=== PATIENT | female | born 1985 ===

== ENCOUNTER 2021-11-30 12:54 | Emergency (ER) | payer SELFPAY ==
[2021-11-30 13:49] VITALS: BP 144/90
[2021-11-30] MEDS ORDERED: SODIUM CHLORIDE 0.9% 500 ML 500 ML IV ONE (14:07)
[2021-11-30] MEDS ORDERED: ONDANSETRON 4 MG/2 ML INJ IV ONE (14:07)
--- NOTE | 2021-11-30 14:09 | Event Note ---
ED Screening Note Date of service: 11/30/21 Time: 14:08 ED Screening Note: 35-year-old female with a past medical history of RA and Crohn's disease presents to the emergency department for evaluation of 1 week history of lower abdominal pain, nausea, vomiting, and generalized swelling of joints. She denies fever, diarrhea, and dysuria. This initial assessment/diagnostic orders/clinical plan/treatment(s) is/are subject to change based on patients health status, clinical progression and re- assessment by fellow clinical providers in the ED. Further treatment and workup at subsequent clinical providers discretion. Patient/guardian urged not to elope from the ED as their condition may be serious if not clinically assessed and managed. Initial orders include:
[2021-11-30] MEDS ORDERED: HYDROmorphone 1 MG/1 ML INJ IV ONE ×2 (14:48→17:48)
--- NOTE | 2021-11-30 14:49 | Emergency Department Report ---
ED General Adult HPI - General Chief complaint: Abdominal Pain Stated complaint: BODYACHE WEAKNESS SWOLLEN Time Seen by Provider: 11/30/21 14:12 Source: patient, RN notes reviewed Mode of arrival: Ambulatory Limitations: No Limitations - History of Present Illness Initial comments: During the history and physical examination, I am chaperoned by dermatology teacher Isha Flynn The patient is a 35-year-old female, recently relocated here from [place]. Her past medical history includes rheumatoid arthritis, and Crohn's disease. She does not have a local primary care doctor, roll reclaimer, or GI specialist. Her home medications include hydroxychloroquine, sulfasalazine, prednisone, 10 mg daily, Flexeril, folic acid, Tylenol, Ventolin, iron sulfate, potassium chloride, and monoclonal antibody, cimzin She also reports that she is COVID-19 vaccinated. The patient presents to the ER with a complaint of diffuse arthralgias, myalgias, lower abdominal pressure, and cramping, without urinary symptoms, without cough, with a complaint of feeling like she needs to go to the bathroom. She has not been able to obtain follow-up with the aforementioned outpatient specialist. She reports that she has supplies of her aforementioned medications at home, secondary to receiving them while in [place]. Denies headache, neck pain, chest pain, vomiting, dysuria. -: Gradual, days(s) Location: abdomen, left, right, upper extremity, lower extremity Consistency: constant Improves with: rest Worsens with: movement - Related Data Previous Rx's Medication Instructions Recorded Last Taken Type Acetaminophen [Non-Aspirin Extra 500 mg PO Q6HR PRN #30 tablet 11/30/21 Unknown Rx Strength] Metoclopramide [Reglan] 10 mg PO QID PRN #30 tablet 11/30/21 Unknown Rx predniSONE 10 mg PO .TAPER #48 tab 11/30/21 Unknown Rx Allergies Allergy/AdvReac Type Severity Reaction Status Date / Time No Known Allergies Allergy Verified 11/30/21 13:45 ED Review of Systems ROS: Stated complaint: BODYACHE WEAKNESS SWOLLEN Other details as noted in HPI Constitutional: malaise, weakness. denies: fever Eyes: denies: eye discharge ENT: denies: epistaxis Respiratory: denies: cough Cardiovascular: denies: chest pain Gastrointestinal: abdominal pain. denies: vomiting, diarrhea Genitourinary: denies: dysuria Musculoskeletal: joint swelling, arthralgia, myalgia Neurological: weakness Hematological/Lymphatic: denies: easy bleeding ED Past Medical Hx - Medications Home Medications: Home Medications Medication Instructions Recorded Confirmed Last Taken Type Acetaminophen [Non-Aspirin Extra 500 mg PO Q6HR PRN #30 tablet 11/30/21 Unknown Rx Strength] Metoclopramide [Reglan] 10 mg PO QID PRN #30 tablet 11/30/21 Unknown Rx predniSONE 10 mg PO .TAPER #48 tab 11/30/21 Unknown Rx ED Physical Exam - General Limitations: No Limitations General appearance: alert, in no apparent distress - Head Head exam: Present: atraumatic, normocephalic - Eye Eye exam: Present: normal appearance, EOMI. Absent: nystagmus - ENT ENT exam: Present: normal exam, normal orophraynx, mucous membranes moist, normal external ear exam - Neck Neck exam: Present: normal inspection, full ROM. Absent: tenderness, meningismus - Respiratory Respiratory exam: Present: normal lung sounds bilaterally. Absent: respiratory distress, wheezes, rales, rhonchi, stridor, decreased breath sounds - Cardiovascular Cardiovascular Exam: Present: regular rate, normal rhythm, normal heart sounds. Absent: bradycardia, tachycardia, irregular rhythm, systolic murmur, diastolic murmur, rubs, gallop - GI/Abdominal GI/Abdominal exam: Present: soft, tenderness, other (There is lower abdominal tenderness). Absent: distended, guarding, rebound, rigid, pulsatile mass - Extremities Exam Extremities exam: Present: normal inspection (No redness, pus or streaking noted), full ROM, tenderness (Point tenderness to the bilateral hands. Point tenderness in the bilateral knees.), other (2+ pulses noted in the bilateral upper and lower extremities. There is no palpable cord. negative Homans sign. Muscular compartments are soft. The pelvis is stable.). Absent: pedal edema, calf tenderness - Back Exam Back exam: Present: normal inspection, paraspinal tenderness. Absent: tenderness, CVA tenderness (R), CVA tenderness (L), vertebral tenderness - Neurological Exam Neurological exam: Present: alert, oriented X3, normal gait, other (No facial droop. Tongue midline. Extraocular movements intact bilaterally. Facial sen sation intact to light touch in V1, V2, V3 distribution bilaterally. 5 and a 5 strength in 4 extremities. Sensation intact to light touch in 4 extremities.). Absent: motor sensory deficit - Psychiatric Psychiatric exam: Present: normal affect, normal mood - Skin Skin exam: Present: warm, dry, intact, normal color. Absent: rash ED Course Vital Signs 11/30/21 13:45 Temperature 98 F Pulse Rate 97 H Respiratory 16 Rate Blood Pressure 144/90 [Left] O2 Sat by Pulse 100 Oximetry - Reevaluation(s) Reevaluation #1: 11/30/21 15:17 Differential diagnosis, including but not limited to: Rheumatoid arthritis, polyarthritis, Crohn's disease, electrolyte derangement, urinary tract infection, colitis, diverticulitis Assessment and plan: 35-year-old female, who is afebrile, with reassuring vital signs, with multiple complaints. She complains of polyarthralgias. Extremities have no redness, pus or streaking, compartments are soft, and range of motion intact over the large bony joints. Examination at this time not suggestive of septic joint. Suspect that this is likely an exacerbation of underlying RA. Treat her pain, obtain urinalysis, appropriate laboratory studies, and reassess. Second complaint of abdominal cramping, with urged to use the bathroom. Treat symptoms, obtain urinalysis, and CT scan of the abdomen pelvis. Reassess after initial data points. I discussed this plan of care with the zohaib carvajal. She articulated understanding. She is agreeable to the plan of care 11/30/21 17:58 Patient reassessed multiple times. On repeat evaluation, she was noted to be sitting comfortably in her chair, and in no acute distress. Patient then again asking for pain medication. Recommended Tylenol/ acetaminophen given initial improvement with hydromorphone. Patient now refusing Tylenol. Patient then stated she cannot take NSAIDs. Patient yelling, belligerent, using foul language, dispensing profanities towards this provider. Patient advised that we will be happy to care for her pain, but that narcotic sparing therapy would be preferable. Ultimately, agreed to order additional dose of hydromorphone for patient's pain. Patient advised that if CAT scan does not show any significant findings, we will not be discharging with narcotic therapy. Patient does indicate that steroid burst typically improves her symptoms. We will therefore order Solu-Medrol in addition to hydromorphone, and write for Medrol/prednisone taper. 11/30/21 18:40 Patient has refused CAT scan of abdomen pelvis. I have discussed the need and recommendation for the study multiple times with the patient. Patient presents as awake, alert, oriented, sober of sound mind, and exhibiting decision-making capacity, she is free from distracting injury. Risks of leaving, including , disability, paralysis, loss of quality of life are discussed with the patient. Conversation witnessed by multiple ER staff members, including Mr. Aryan Parry RN, and EMT, Mr. Andre martin. Patient will be discharged AMA, with instructions, and prescriptions. Patient may return to the emergency room right away if and when she changes her mind 11/30/21 18:44 ED Medical Decision Making - Lab Data Result diagrams: 11/30/21 14:58 11/30/21 14:58 Vital Signs 11/30/21 13:45 Temperature 98 F Pulse Rate 97 H Respiratory 16 Rate Blood Pressure 144/90 [Left] O2 Sat by Pulse 100 Oximetry Critical care attestation.: If time is entered above; I have spent that time in minutes in the direct care of this critically ill patient, excluding procedure time. ED Disposition Clinical Impression: History of rheumatoid arthritis, History of Crohn's disease, Acute abdominal pain, Polyarthritis Disposition: 07 LEFT AWOL/ELOPED Is pt being admited?: No Does the pt Need Aspirin: No Condition: Undetermined Instructions: Abdominal Pain, Adult, Arthritis, Abdominal Pain (ED) Additional Instructions: Please continue current outpatient medications. Do not take metformin medication for the next 2 days, if patient takes this medication. Patient may take the prescribed pain medications and nausea medications as needed and directed. We recommend follow-up with a primary care doctor as soon as possible We recommend follow-up with a associate drafter as soon as per We recommend follow-up with a roll reclaimer as soon as possible Patient may attempt to find a roll reclaimer at [facility], [facility], [facility], or [facility]. The patient may also consult [employer], or her private insurance company to obtain names, phone numbers and addresses of local principal bioinformatics specialist. For the patient's convenience, local primary care and GI physicians have been listed on this discharge paperwork. This [facility] does not have rheumatology a vailable for outpatient referral or consultation. Patient will also receive temporary steroid burst, starting with 60 mg of prednisone on day 1 and 2, 50 mg of prednisone, day 3 and 4, 40 mg of predn isone, day 5 and 6, 30 mg of prednisone, day 7 and 8, 20 mg of prednisone, day 9 and 10, back to 10 mg of prednisone, days 11 and 12, with instructions to obtain outpatient follow-up with primary care or rheumatology by the end of the prednisone burst. Please have your primary care doctor contact the medical records department to obtain copies of laboratory studies and imaging studies, and follow-up on nonemergent incidental findings. Please return to the emergency room right away with new pain, worsened pain, migration of pain, projectile vomiting, change in mental status, confusion, inability tolerate liquid feeds, new, worsened or different symptoms not present on the initial emergency room evaluation As we discussed, you have left the hospital/emergency room AGAINST MEDICAL ADVICE. By leaving, you risked , disability, paralysis, permanent loss of quality of life. The ER is open 24 hours a day, 7 days a week. It never closes. Please return to the emergency room right away if and when you change your mind. If you decide not to return to the emergency room, please follow-up with the listed physician referrals as soon as possible. Prescriptions: Acetaminophen [Non-Aspirin Extra Strength] 500 mg PO Q6HR PRN #30 tablet PRN Reason: Pain , Severe (7-10) predniSONE 10 mg PO .TAPER #48 tab Metoclopramide [Reglan] 10 mg PO QID PRN #30 tablet PRN Reason: Nausea Referrals: PRIMARY CAREMD [Primary Care Provider] - 3-5 Days [facility] [Provider Group] - 3-[address] [facility] [Provider Group] - 3-5 Days Forms: AMA Form
[2021-11-30 15:24] LABS: Hematocrit 31.1 % (30.3-42.9); Hemoglobin 9.7 gm/dl (10.1-14.3); Mean Corpuscular HGB Conc 31 % (30-34); Mean Corpuscular Volume 71 fl (79-97); Platelet Count 537 K/mm3 (140-440); Red Blood Count 4.41 M/mm3 (3.65-5.03); Red Cell Distribution Width 18.2 % (13.2-15.2)
[2021-11-30 16:03] LABS: Alanine Aminotransferase 11 units/L (7-56); Albumin 3.7 g/dL (3.9-5); Blood Urea Nitrogen 9 mg/dL (7-17); Calcium 8.3 mg/dL (8.4-10.2); Hemolysis Index 3
[2021-11-30 16:04] LABS: BUN/Creatinine Ratio 15
[2021-11-30] MEDS ORDERED: ACETAMINOPHEN 500 MG TAB PO ONE (16:44)
[2021-11-30 17:32] LABS: Bilirubin,Urine NEG (Negative); Blood,Urine LG (Negative); Color,Urine Yellow (Yellow); RBC,Urine < 1.0 /HPF (0.0-6.0); Urobilinogen,Urine < 2.0 mg/dL (<2.0)
[2021-11-30] MEDS ORDERED: methylPREDNISolone Sod Succinate 125 MG/2 ML INJ IV ONE (17:52)
[2021-11-30 18:36] LABS: WBC,Urine < 1.0 /HPF (0.0-6.0)
== END 2021-11-30 18:51 | disposition left against medical advice (07) ==
LOC: ED 12:54
DX: R10.30 Lower abdominal pain, unspecified (principal); M13.89 Other specified arthritis, multiple sites; K50.90 Crohn's disease, unspecified, without complications; Z79.899 Other long term (current) drug therapy
CPT/HCPCS: 36415; 80053; 81001; 82550; 83690; 83735; 84703; 85027; 96374; 96375; 96376; 99283; J1170; J2405; J2930; J7040